=== PATIENT | female | born 1995 | race Caucasian/White ===

== ENCOUNTER 2019-11-12 02:02 | Emergency (ER) | payer OTHER, SELFPAY ==
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
== END 2019-11-12 02:50 | disposition home or self-care (01) ==
LOC: ERS 02:02
DX: S02.5XXA Fracture of tooth (traumatic), initial encounter for closed fracture (principal); S00.33XA Contusion of nose, initial encounter; F17.200 Nicotine dependence, unspecified, uncomplicated; V89.2XXA Person injured in unspecified motor-vehicle accident, traffic, initial encounter
CPT/HCPCS: 70450; 70486; 71045; 72125